=== PATIENT | male | born 1985 | race Caucasian/White ===

== ENCOUNTER 2017-02-10 13:33 | Emergency (ER) | payer OTHER ==
--- NOTE | 2017-02-10 15:18 | ER Document Report ---
ED Cardiac - General Mode of Arrival: Ambulatory Information source: Patient TRAVEL OUTSIDE OF THE [place] IN LAST 30 DAYS: No <RAVEN RODRIGUEZ - Last Filed: 02/10/17 18:49> <MYLENE KHAN - Last Filed: 02/20/17 11:11> - General Chief Complaint: Chest Pain Stated Complaint: CHEST PAIN Time Seen by Provider: 02/10/17 15:03 Notes: Patient is a 31-year-old male who presents to the emergency department today with complaints of chest pain for the last few months. Patient states he has had daily chest pain for the last 2-3 months. When asked why he decided to come get his chest pain evaluated today patient states "I just wanted to get it checked out". Patient then goes on to say that he is in the [place] and he is supposed to go to [place] on Monday for some sort of physical training. Patient states he went to an urgent care prior to coming here, had an EKG done that was "abnormal and was told to come to the ER". Patient states that at the urgent care they mentioned that the "top of his heart looked funny" on EKG. Patient describes this chest pain as a sharp stabbing pain and he states that this pain comes and goes, when it begins it only lasts for a few minutes. Patient denies any history of PE/DVT. Patient denies any immediate family history of cardiac disease. (RAVEN RODRIGUEZ) - Related Data Allergies/Adverse Reactions: No Known Allergies Allergy (Verified 02/10/17 15:03) Home Medications: Current Home Medications No Home Medications 02/10/17 [History] Past Medical History - General Information source: Patient - Social History Smoking Status: Never Smoker Cigarette use (# per day): No Frequency of alcohol use: None Drug Abuse: None Lives with: Family Family History: Reviewed & Not Pertinent Patient has suicidal ideation: No Patient has homicidal ideation: No - Medical History Medical History: Negative Surgical Hx: Negative <RAVEN RODRIGUEZ - Last Filed: 02/10/17 18:49> Review of Systems - Review of Systems Constitutional: No symptoms reported EENT: No symptoms reported Cardiovascular: See HPI, Chest pain Respiratory: No symptoms reported Gastrointestinal: No symptoms reported Genitourinary: No symptoms reported Male Genitourinary: No symptoms reported Musculoskeletal: No symptoms reported Skin: No symptoms reported Hematologic/Lymphatic: No symptoms reported Neurological/Psychological: No symptoms reported -: Yes All other systems reviewed and negative <RAVEN RODRIGUEZ - Last Filed: 02/10/17 18:49> Physical Exam <RAVEN RODRIGUEZ - Last Filed: 02/10/17 18:49> <MYLENE KHAN - Last Filed: 02/20/17 11:11> - Vital signs Vitals: Temp Pulse Resp BP Pulse Ox 97.8 F 87 14 152/86 H 99 02/10/17 13:37 02/10/17 13:37 02/10/17 13:37 02/10/17 13:37 02/10/17 13:37 - Notes Notes: Physical Exam: General: Alert, appears well. HEENT: Normocephalic. Atraumatic. PERRLA. Extraocular movements intact. Oropharynx clear. Neck: Supple. Cardiovascular: No chest wall tenderness with palpation. Regular rate and rhythm. Respiratory: No respiratory distress. Abdominal: Normal Inspection. No distension. Extremities: Moves all four extremities. Neurological: Cranial nerves II-XII grossly intact bilaterally. Normal cognition. AAOx4. Normal speech. Psychological: Normal affect. Normal Mood. Skin: Warm. Dry. Normal color. (RAVEN RODRIGUEZ) Course - Laboratory Result Diagrams: 02/10/17 15:45 02/10/17 15:45 <RAVEN RODRIGUEZ - Last Filed: 02/10/17 18:49> - Laboratory Result Diagrams: 02/10/17 15:45 02/10/17 15:45 <MYLENE KHAN - Last Filed: 02/20/17 11:11> - Re-evaluation Re-evalutation: 02/10/17 15:20 Since the emergency department with a chief complaint of intermittent sharp stabbing chest pain for about 3 months. He said he thought he better get it checked out today because he supposed to go on a to [place] for training in the . He said he went to the urgent care they told him that his EKG was highly abnormal and told him to come here. The chest pain is daily for 3 months it is intermittent sharp stabbing lasts a few seconds then goes away and can recur several times throughout the day it is not associated with exertion shortness of breath radiation of pain nausea vomiting or diaphoresis. He has not had any syncopal events. He has no history of high blood pressure diabetes hyperlipidemia or first-degree relatives with heart disease. On examination he is well-appearing nontoxic in no acute distress head is normal cephalic atraumatic heart lungs abdomen soft no tenderness guarding rebound rigidity EKG is interpreted by myself to have no acute ST segment elevation or depression. When order cardiac enzymes chest x-ray. 02/10/17 17:49 Pain chest pain-free and hemodynamically stable with a negative cardiac workup in 2-3 months of intermittent sharp stabbing chest pain. I have instructed him that the follow-up with in his days in 3-4 days and discussed reasons for ED return (MYLENE KHAN) - Vital Signs Vital signs: Temp Pulse Resp BP Pulse Ox 97.8 F 74 16 146/99 H 100 02/10/17 13:37 02/10/17 20:38 02/10/17 20:38 02/10/17 20:38 02/10/17 20:38 - Laboratory Laboratory results interpreted by me: 02/10/17 15:45 RBC 5.74 H - EKG Interpretation by Me Additional EKG results interpreted by me: 02/10/17 15:20 EKG interpreted by myself to reveal sinus rhythm at [address] segment elevation or depression (MYLENE KHAN) Discharge <RAVEN RODRIGUEZ - Last Filed: 02/10/17 18:49> <MYLENE KHAN - Last Filed: 02/20/17 11:11> - Discharge Clinical Impression: Nonspecific chest pain Condition: Stable Disposition: HOME, SELF-CARE Additional Instructions: Chest Pain of Unclear Cause The exact cause of your chest pain isn't clear. Fortunately, there is no evidence of a dangerous medical condition. Further testing may be required to find the source of the pain. Most often, we find that this pain is coming from the chest wall -- the muscles or rib joints in the chest. But chest pain can come from the lung and lung lining, the esophagus, the heart valves or heart lining, and even the stomach or gallbladder. Rest. Eat lightly until the pain is gone. We may prescribe medicine for pain and inflammation. You should call the physician immediately if the pain radiates to the shoulder, jaw or arms; if you start to run a fever or develop a cough; or if you develop shortness of breath, or other new or alarming symptoms. Referrals: GREG DANIEL MD [ACTIVE STAFF] - (Admit to be seen in follow-up in 3-4 days return for increasing worsening or new symptoms) Scribe Attestation: 02/10/17 15:21 I personally performed the services described in the documentation, reviewed and edited the documentation which was dictated to my scribe in my presence, and it accurately records my words and actions. (MYLENE KHNA) Scribe Documentation - Scribe Written by Maddiee:: Sienna Queen, 02/10/17 1906 acting as scribe for :: Dylan <RAVEN RODRIGUEZ - Last Filed: 02/10/17 18:49>
[2017-02-10 16:01] LABS: ABSOLUTE EOSINOPHILS # (AUTO) 0.3 10^3/uL (0.0-0.6); ABSOLUTE LYMPHOCYTES (AUTO) 2.8 10^3/uL (0.5-4.7); ABSOLUTE MONOCYTES (AUTO) 0.5 10^3/uL (0.1-1.4); ABSOLUTE NEUT (AUTO) 5.5 10^3/uL (1.7-8.2); BASOPHILS % (AUTO) 0.5 % (0-2); EOSINOPHILS % (AUTO) 3.2 % (0-6); HEMATOCRIT 49.8 % (37.9-51.0); HEMOGLOBIN 16.9 g/dL (13.5-17.0); HGB HCT DIFFERENCE 0.9; LYMPHOCYTES % (AUTO) 30.3 % (13-45); MEAN CORPUSCULAR HEMOGLOBIN 29.5 pg (27.0-33.4); MEAN CORPUSCULAR VOLUME 87 fl (80-97); MONOCYTES % (AUTO) 5.4 % (3-13); RED BLOOD COUNT 5.74 10^6/uL (4.35-5.55); RED CELL DISTRIBUTION WIDTH 12.6 % (11.5-14.0); SEGMENTED NEUTROPHILS % (AUTO) 60.6 % (42-78); WHITE BLOOD COUNT 9.2 10^3/uL (4.0-10.5)
[2017-02-10 16:25] LABS: ANION GAP 10 (5-19); BLOOD UREA NITROGEN 15 mg/dL (7-20); CALCIUM 10.1 mg/dL (8.4-10.2); CARBON DIOXIDE 28 mmol/L (22-30); CHLORIDE 104 mmol/L (98-107); CREATINE KINASE 96 U/L (55-170); CREATININE RESULT 1.15 mg/dL (0.52-1.25); GLUCOSE 91 mg/dL (75-110); POTASSIUM 4.1 mmol/L (3.6-5.0); SODIUM 141.7 mmol/L (137-145)
[2017-02-10 16:41] LABS: TROPONIN I < 0.012 ng/mL
[2017-02-10 20:42] VITALS: BP 146/99
--- NOTE | 2017-02-11 17:43 | EKG REPORT ---
SEVERITY:- BORDERLINE ECG - ECTOPIC ATRIAL RHYTHM SHORT AR INTERVAL, ACCELERATED AV CONDUCTION : Confirmed by: Radha Barnes MD 11-Feb-2017 17:42:41
== END 2017-02-10 17:59 | disposition home or self-care (01) ==
LOC: ER 13:33
DX: R07.9 Chest pain, unspecified (principal)
CPT/HCPCS: 36415; 80048; 82550; 83880; 84484; 85025; 93005; 93010; 99285